=== PATIENT | female | born 1955 | race Two or more races ===

== ENCOUNTER 2024-08-28 09:11 | Outpatient (REF) | payer MEDICARE, MEDICAID, SELFPAY | END 2024-08-28 09:12 | disposition home or self-care (01) | LOC: HO.HOSX 09:11 | PROVIDERS: Visit Provider Physician Assistant | DX: M25.552 Pain in left hip (principal); M70.62 Trochanteric bursitis, left hip | CPT/HCPCS: 20610; 73502; 99202; J1010; J2003 ==

== ENCOUNTER 2024-08-28 09:11 | Outpatient (AMB) | payer MEDICARE, MEDICAID, SELFPAY ==
--- NOTE | 2024-08-28 09:18 | A.OFFVIS_ITS ---
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 Patient reports her pain has been present for years and fluctuates in intensity. She has a burning sensation that is located at the lateral aspect of hip and travels down her leg to her foot. Occasional numbness and tingling. No other tx. Denies injury. Finds no relief with Tylenol. 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 She denies any hip injury in the past. She states she has burning sensation and pain at the lateral aspect of her that fluctuates in intensity and radiates down to her leg and foot. She also experiences occasional numbness and tingling in her hip. She denies any groin pain. She has not had any treatment in the past. She finds no relief with Tylenol. She has a history of prediabetes. [facility] Social History (Updated 08/28/24 @ 09:30 by Emily Lind Franki) Patient Tobacco Use Status: Never used Tobacco Current occupational status: unemployed Review of Systems Const All systems reviewed & are unremarkable except as noted in HPI and below Physical Exam Vital Signs: BMI result Body Mass Index 36.6 Const General: cooperative, healthy appearing, comfortable, no acute distress, well developed and alert Orientation/consciousness: patient oriented x3 HEENT Head: Yes normal to inspection, Yes normocephalic and Yes atraumatic Eyes General: appearance normal, both eyes and all related structures Resp Effort & Inspection: normal respiratory effort and able to speak in complete sentences Cardio Rate: regular rate Peripheral pulses: Peripheral pulses 2+ throughout GI Palpation (GI): Soft to palpation Skin Lesions: no lesions Rashes: no rashes Neuro General: patient oriented x3 Extrem Other: Left hip: Normal to inspection. No pain with ROM of the hip. Pain along the greater trochanter. No pain with hip flexion or abduction. Positive tenderness along the SI joint, Positive SLR. NVI. Office Procedures AMB Joint Injection/Aspiration Joint Injection/Aspiration Primary Site: right knee Prep: site was prepped using aseptic technique, ethochloride spray was applied and injection warnings given Injected: 80 mg of, DepoMedrol, with 8 mL of, 1% plain lidocaine and in the joint Approach Used: anterolateral Procedure: The patient tolerated the procedure well and there was some relief with the local anesthesia Coding 29160 - Glenohumeral/Tronchanteric Bursa/Intraarticular Procedure code (CPT) selection complete Assessment & Plan Assessment & Plan (1) Trochanteric bursitis, left hip: Code(s): M70.62 - Trochanteric bursitis, left hip Category: Medical Plan We discussed options today, which include steroid injection. The patient did consent to move forward with the left hip injection, which was tolerated well. I recommended rest, ice, and elevation and OTC anti-inflammatories as needed for discomfort. She was also referred to a course of physical therapy in the office today. If symptoms persist or worsens over the next 6-8 weeks, patient will contact the office to discuss referral for si joint infection at pain mgmnt , otherwise follow-up as needed. Orders: Orders XR hip LT min 2V Today M25.552 - Pain in left hip PT Evaluation and Treatment Today M70.62 - Trochanteric bursitis, left hip Patient Instructions: Scribed for Monique Ballard PA-C, by Sae Quiñones medical lab technologist, on 08/28/2024 at 8:45 AM EST.? I, Monique Ballard PA-C, have personally reviewed and agree with the information entered by the scribe. Coding Level of Care Code New Pt Level 3 (62980) Complex EM visit Add On G2211 Diagnoses Trochanteric bursitis, left hip M70.62 CPT Codes Coding - Joint 7: 72115 - Glenohumeral/Tronchanteric Bursa/Intraarticular ([id number])
[2024-08-28 09:34] VITALS: BMI 36.6
== END 2024-08-28 10:09 | disposition home or self-care (01) ==
PROVIDERS: PCP Nurse Practitioner; Visit Provider Physician Assistant
DX: M70.62 Trochanteric bursitis, left hip (principal)
CPT/HCPCS: 20610; 99203

== ENCOUNTER 2024-11-19 08:40 | Outpatient (REF) | payer MEDICARE, MEDICAID, SELFPAY ==
--- NOTE | ~2024-11-19 | XR_ITS ---
EXAMINATION: XR HAND 3 OR MORE VIEWS RIGHT HISTORY: M79.641 - Pain in right hand COMPARISON: There are no prior studies available for comparison. FINDINGS: Three views of the right hand are submitted. Osseous mineralization is normal. There is an osseous density within the soft tissues of the dorsal aspect of the DIP joint of the middle finger which may represent an old fracture fragment. There is no dislocation. There is degenerative change of the interphalangeal joint of the thumb and the DIP joints. The soft tissues are unremarkable. XR/XR hand RT min 3V IMPRESSION: Probable old fracture fragment adjacent to the DIP joint of the little finger. Clinical correlation is recommended. Degenerative changes of the interphalangeal joint of the thumb and the DIP joints. Electronically signed by: Hayden Jeronimo MD 11/19/2024 03:13 PM NAYELY HARPER
== END 2024-11-19 08:41 | disposition home or self-care (01) ==
LOC: HO.HOSX 08:40
DX: M79.641 Pain in right hand (principal); M25.642 Stiffness of left hand, not elsewhere classified; R20.0 Anesthesia of skin; R20.2 Paresthesia of skin
CPT/HCPCS: 73130; 99212

== ENCOUNTER 2024-11-19 09:01 | Outpatient (AMB) | payer MEDICARE, MEDICAID, SELFPAY ==
--- NOTE | 2024-11-19 09:05 | A.OFFVIS_ITS ---
Vital Signs 11/19/24 09:06 Height 5 ft 2 in Weight 200 lb BMI 36.6 Intake Visit Reasons: New Prob - Right Hand Pain Intake Note: Chantal is a 69 year old right hand dominant female who presents today for a new problem visit with complaints of right hand pain. Patients daughter is present with her today and wishes to interpret for her mother, they have declined crane hoist or lift operator services. Patient reports that she has had right hand pain for about a year now. She explains that she is having cramping and pain in the hand with numbness and tingling in the thumb, 1st and 2nd digits. She has had no previous treatment for her symptoms. She does not take anything for her pain currently. Piece Jobber Required: Yes Piece Jobber Services: Piece Jobber Offered & Declined (Daughter to interpret) Allergies aspirin Adverse Reaction (Verified 11/19/24 09:16) upset stomach HPI HPI New Prob - Right Hand Pain: Details: Chantal is a 69 year old right hand dominant female who presents today for a new problem visit with complaints of right hand pain. Patients daughter is present with her today and wishes to interpret for her mother, they have declined crane hoist or lift operator services. Patient reports that she has had right hand pain for about a year now. She explains that she is having cramping and pain in the hand with numbness and tingling in the thumb, 1st and 2nd digits. She has had no previous treatment for her symptoms. She does not take anything for her pain currently. [facility] Surgical History (Updated 11/19/24 @ 09:18 by Sejal Rosenberg CMA) H/O lumbosacral spine surgery Social History (Updated 08/28/24 @ 09:30 by Emily Lind [facility]) Patient Tobacco Use Status: Never used Tobacco Current occupational status: unemployed Review of Systems Const All systems reviewed & are unremarkable except as noted in HPI and below Physical Exam Vital Signs: BMI result Body Mass Index 36.6 Extrem Other: Patient is alert, oriented, and in no acute distress. Neuro: Diminished sensation of the tip of the index finger of the left hand in the office today Normal sensation of the tips of all other digits of the left hand in the office today Vascular: Cap refill brisk Pain: Pain with range of motion of the left hand No tenderness to palpation about the left hand or wrist ROM: With encouragement, patient was able to get close to making a closed fist with the left hand Patient can extend all digits of the left hand fully and without difficulty Skin: No lacerations or abrasions. General: No ecchymosis, erythema, or evidence of infection. Psych: Appears grossly normal Affect normal Attitude cooperative Assessment & Plan Assessment & Plan (1) Stiffness of left hand joint: Code(s): M25.642 - Stiffness of left hand, not elsewhere classified Category: Medical (2) Numbness and tingling in left hand: Code(s): R20.0 - Anesthesia of skin; R20.2 - Paresthesia of skin Category: Medical Plan 1. Numbness and tingling of left hand Intermittent, daily, worse at night At this time, patient was referred for EMG and nerve conduction study to assess the health of the nerves of the left upper extremity Patient will follow-up after EMG and nerve conduction study for results review and discussion of further treatment options if indicated Patient was amenable to this plan 2. Stiffness of left hand Patient was referred to occupational therapy for range of motion and strengthening of the left hand in the setting of stiffness Patient was amenable to this plan Orders: Orders XR hand RT min 3V Today M79.641 - Pain in right hand OT Evaluation and Treatment Today M25.642 - Stiffness of left hand, not elsewhere classified, R20.0 - Anesthesia of skin, R20.2 - Paresthesia of skin NE electromyogram (EMG) Today R20.0 - Anesthesia of skin, R20.2 - Paresthesia of skin NE nerve conduction velocity Today R20.0 - Anesthesia of skin, R20.2 - Paresthesia of skin Coding Level of Care Code New Pt Level 3 (38641) Diagnoses Stiffness of left hand joint M25.642 Numbness and tingling in left hand R20.0; R20.2
[2024-11-19 09:06] VITALS: BMI 36.6
--- OUTSIDE RECORDS SUMMARY | 2024-11-19 09:47 | XMS_ITS | Clinical Summary ---
Author Organization [facility] Address [address] [place] [address] Care Team Providers Care Package Handler Name Role Phone Elena Wilkinson NP Primary Care Provider + [phone] Source Comments PLEASE NOTE, if this patient is a minor, it may be UNLAWFUL to discuss sensitive information that is contained in these records (such as FAMILY PLANNING, MENTAL HEALTH or SUBSTANCE ABUSE) with the minor patient's parent or other person without the patient's specific authorization.[facility] Allergies Active Allergy Reactions Criticality Noted Date Comments Aspirin 04/19/2024 Gastric disease , abd pain with use of ASA Medications MISCELLANEOUS MEDICAL SUPPLY MISCIndications:Ac yuhaaviatam pain of right knee,Right hand pain by miscellaneous route once daily Cane please 1 Each 04/16/20 24 Active lisinopriL 10 mg tabletIndications: Hypertension, unspecified type TAKE 1 TABLET BY MOUTH DAILY 90 Tablet 05/29/20 24 Active metFORMIN (GLUCOPHAGE) 850 mg tabletIndications: Prediabetes TAKE 1 TABLET BY MOUTH ONCE A DAY FOR 1 MONTH THEN INCREASE TO TWICE DAILY 180 Tablet 1 06/04/20 24 Active amoxicillin-pot clavulanate (AUGMENTIN) 875-125 mg per tabletIndications: Ear infection Take 1 Tablet by mouth 2 (two) times daily 10 Tablet 07/15/20 24 Active atorvastatin (LIPITOR) 10 mg tabletIndications: Other hyperlipidemia TAKE 1 TABLET BY MOUTH EVERY NIGHT AT BEDTIME 90 Tablet 1 09/23/20 24 Active Active Problems Problem Noted Date Diagnosed Date Obesity (BMI 30-39.9) 04/16/2024 Hypertension 04/16/2024 Overview (04/19/2024): Unable to take aspirin Other hyperlipidemia 03/21/2024 Prediabetes 03/06/2024 Subclinical hypothyroidism 12/29/2023 Immunizations Name Administration Dates Next Due Influenza (FLUZONE), high-dose, trivalent, PF PFIZER COVID VACCINE, PURPLE CAP, 12+ 03/03/2021 ,02/10/2021 PNEUMOCOCCAL CONJUGATE PCV 20 (Prevnar) 04/16/20 24 PNEUMOCOCCAL POLYSACCHARIDE PPV23 03/03/2023 Social History Tobacco Use Types Packs/Day Years Used Date Smoking Tobacco: Never Smokeless Tobacco: Never Tobacco Cessation:Counseling Given: Yes Alcohol Use Standard Drinks/Week Comments Never 0 (1 standard drink = 0.6 oz pur e alcohol) Social Connections Answer Date Recorded Connectedness 1 07/15/2024 Financial Resource Strain Answer Date R ecorded Financial Resource Strain 1 2023 Stress Answer Date Recorded Stress 1 07/15/2024 Physical Activity Answer Date Recorded Physical Activity 0 06/24/2022 Food Insecurity Answer Date Recorded Food 1 07/15/2024 Transportation Needs Answer Date Record ed Transportation 1 07/15/2024 Housing Stability Answer Date Recorded Housing 1 07/15/2024 Safety and Environment Answer Date Lior rded Safety 1 03/06/2024 Utilities Answer Date Recorded Utilities 1 07/15/2024 Employment Answer Date Recorded Stress 0 08/29/2022 Comments No Sex and Gender Information Value Date Recorded Sex Assigned at Female 08/29/2022 7:49 AM PST Legal Sex Female 1:00 PM PDT Gender Identity Female 08/29/2022 7:49 AM PST Sexual Orientation Straight 08/29/2022 7: 49 AM PST 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 Start 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 Job 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 ss Not on file Not on file Not on file Last Filed Vital Signs Vital Sign Reading Time Taken Comments Blood Pressure 122/70 07/15/2024 8:53 AM EDT Pulse 59 07/15/2024 8:53 AM EDT Temperature 36.6 ??C (97.9 ??F) 07/15/2024 8:53 AM ED T Respiratory Rate 20 07/15/2024 8:53 AM EDT Oxygen Saturation 98% 07/15/2024 8:53 AM EDT Inhaled Oxygen Concentration - - Weight 98.4 kg (217 lb) 07/15/2024 8:53 AM EDT Height 157.5 cm (5' 2 ) 04/16/2024 11:11 AM EDT Body Mass Index 39.69 04/16/2024 11:11 AM EDT Plan of Treatment Health Maintenance Due Date Last Done Comments Imm-DTaP/Tdap/Td (1 - Tdap) 1976 Breast Cancer Screening (Mammogram) 1997 CT Colonography 2002 Colonoscopy 2002 FIT/gFOBT 2002 Fecal DNA 2002 Flexible Sigmoidoscopy 2002 Imm-Zoster, Recombinant (1 of 2) 2007 Bone Density Screening 2022 [id number]-80 ( season) 2024 03/03/2021, 02/10/2021 Alcohol and Drug Screen 09/25/2024 07/15/20 24, 04/16/2024, 03/03/2023 Depression Annual Screen 09/25/2024 07/15/2024 Diabetes Screening 10/17/2024 04/16/2024, 0 04/16/2024, 12/29/2023, Additional history exists Colorectal Cancer Screening 03/11/2025 Postponed from 2002 (Follow up visit) Falls Prevention 04/16/2025 04/16/2024 Lipid Screening 04/16/2025 04/16/2024, 03/20/2024 TSH Monitoring 04/16/2025 04/16/2024, 02/24, 12/27/2023 Medicare Annual Wellness Visit 07/15/2025 07/15/2024, 03/03/2023 Tobacco Screening 07/15/2025 07/15/2024 Hepatitis C Screening Completed 04/16/2024 Imm-Pneumococcal 65+ Completed 04/16/2024, 03/03/20 Imm-Influenza Completed 07/15/2024 Procedures Procedure Name Priority Date/Time Associated Diagnosis Comments REFERRAL TO ORTHOPEDICS Routine 08/28/2024 3:00 AM EST Chronic pain of both knees Right hand pain Chronic left hip pain THYROID CASCADING REFLEX PANEL Routine 04/16/2024 11:57 AM EDT Subclinical hypothyroidism Other hyperlipidemia Prediabetes HEPATITIS C AB W/RFLX HCV RNA, QT, RT PCR Routine 04/16/2024 11:57 AM EDT Need for hepatitis C screening test HEMOGLOBIN GLYCOSYLATED A1C Routine 04/16/2024 11:57 AM EDT Subclinical hypothyroidism Other hyperlipidemia Prediabetes LIPID PANEL Routine 04/16/2024 11:57 AM EDT Subclinical hypothyroidism Other hyperlipidemia Prediabetes from Last 3 Months or Most Recently Relevant to Health Maintenance Results * REFERRAL TO ORTHOPEDICS (08/28/2024 3:00 AM EST) 08/28/2024 3:00 AM EST us Elena Wilkinson NP REFERRAL Edited Resul t - Final * HEPATITIS C AB W/RFLX HCV RNA, QT, RT PCR (04/16/2024 11:57 AM EDT) HEPATITIS C ANTIBODY NON-REACT LISANDRO NON-REACT LISANDRO [facility] Comment: HCV antibody was non-reactive. There is no laboratory evidence of HCV infection. In most cases, no further action is required. However, if recent HCV exposure is suspected, a test for HCV RNA (test code 14048) is suggested. For additional information please refer to http://education.[employer].L[employer]MeYourLiteracy/faq/VKT43s4 (This link is being provided for informational/ educational purposes only.) Blood Blood / Unknown 04/16/2024 1 1:57 AM EDT 04/16/2024 11:57 AM EDT us Elena Wilkinson NP LAB - BLOOD DRAW Edited Resu lt - Final [facility] [address] [address], [facility] [address] [phone] * THYROID CASCADING REFLEX PANEL (04/16/2024 11:57 AM EDT) TSH 2.50 0.40 - 4.50 mIU/L [facility] Blood Blood / Unknown 04/16/2024 1 1:57 AM EDT 04/16/2024 11:57 AM EDT Elena Wilkinson CHANNEL PROGRAM MANAGER LAB - BLOOD DRAW Edited Resu lt - Final Performing Organization Address City/[facility]/ZIP Co de Phone Number [facility] [address] [address], [facility] [address] [phone] * (ABNORMAL) HEMOGLOBIN GLYCOSYLATED A1C (04/16/2024 11:57 AM EDT) Pathologist [facility] HEMOGLOBIN A1C 6.3(H) <5.7 % of total Hgb [facility] Comment: For someone without known diabetes, a hemoglobin A1c value between 5.7% and 6.4% is consistent with prediabetes and should be confirmed with a follow-up test. For someone with known diabetes, a value <7% indicates that their diabetes is well controlled. A1c targets should be individualized based on duration of diabetes, age, comorbid conditions, and other considerations. This assay result is consistent with an increased risk of diabetes. Currently, no consensus exists regarding use of hemoglobin A1c for diagnosis of diabetes for children. Blood Blood / Unknown 04/16/2024 1 1:57 AM EDT 04/16/2024 11:57 AM EDT us Elena Wilkinson NP LAB - BLOOD DRAW Edited Resu lt - Final Performing Organization Address City/[facility]/ZIP Co de Phone Number [facility] [address] [address], [employer] [address] [phone] * (ABNORMAL) LIPID PANEL (04/16/2024 11:57 AM EDT) Pathologist [facility] CHOLESTEROL, TOTAL 245(H) <200 mg/dL [facility] HDL CHOLESTEROL 49(L) > OR = 50 mg/dL [facility] TRIGLYCERIDES 300(H) <150 mg/dL [facility] Comment: If a non-fasting specimen was collected, consider repeat triglyceride testing on a fasting specimen if clinically indicated. Ron et al. J. of Clin. Lipidol. 2015;9:129-169. LDL-CHOLESTEROL 150(H) 99 mg/dL (calc) [facility] Comment: Reference range: <100 Desirable range <100 mg/dL for primary prevention; ?? <70 mg/dL for patients with CHD or diabetic patients with > or = 2 CHD risk factors. LDL-C is now calculated using the Yeni calculation, which is a validated novel method providing better accuracy than the Friedewald equation in the estimation of LDL-C. Burak SS et al. INGRID. 2013;310(19): 1840-6224 (http://education.[employer] [facility] [employer]/faq/KNX982) CHOL/HDLC RATIO 5.0(H) <5.0 (calc) [facility] NON-HDL CHOLESTEROL 196(H) <130 mg/dL (calc) [facility] Comment: For patients with diabetes plus 1 major ASCVD risk factor, treating to a non-HDL-C goal of <100 mg/dL (LDL-C of <70 mg/dL) is considered a therapeutic option. Blood Blood / Unknown 04/16/2024 1 1:57 AM EDT 04/16/2024 11:57 AM EDT us Elena Wilkinson NP LAB - BLOOD DRAW Final Resul t [facility] [address] [place] [phone], [facility] [place] [facility] [address] [place] [phone] from Last 3 Months or Most Recently Relevant to Health Maintenance Insurance [place] Care Teams Package Handler Relationship Specialty Start Date End Date Elena Wilkinson NP [address] [place] [address] PCP - General Internal Medicine 06/24/22
== END 2024-11-19 09:37 | disposition home or self-care (01) ==
PROVIDERS: PCP Nurse Practitioner
DX: M25.642 Stiffness of left hand, not elsewhere classified (principal); R20.0 Anesthesia of skin; R20.2 Paresthesia of skin
CPT/HCPCS: 99213

== ENCOUNTER → 2024-11-19 09:05 | Outpatient (BNV) | payer MEDICARE, MEDICAID, SELFPAY | PROVIDERS: Visit Provider Radiology Diagnostic Radiology | DX: M19.041 Primary osteoarthritis, right hand (principal) | CPT/HCPCS: 73130 ==

== ENCOUNTER 2025-01-22 10:03 | Outpatient (REF) | payer MEDICARE, MEDICAID, SELFPAY ==
--- NOTE | 2025-01-22 10:08 | EMG_ITS ---
Chief complaint: At least 1 year, worsening/progressing, right shoulder/arm pain with weakness, inability to flex and abduct right shoulder/upper arm, with tingling specifically on digits 2 and 3. On exam, noted lateral scapular winging on the right side. No atrophy. No hyperreflexia. Reason for referral: Evaluate for radiculopathy Referred by: Urbano PRINCE Procedure done: Patient clarified that all symptoms are on the right side, although order was placed for left side. Ortho notes reviewed. Right upper extremity NCS/EMG performed. Precautions and/or limitations: None Upper Sorbian speaking, seen with clinical product manager. The limb temperature was monitored continuously and remained between 32-36 degrees C during the performance of the NCS. Nerve Conduction Studies Anti Sensory Summary Table ?Stim Site NR Onset (ms) Norm Onset (ms) Peak (ms) Norm Peak (ms) O-P Amp (?V) Norm O-P Amp Site1 Site2 Delta-0 (ms) Dist (cm) Tho (m/s) Norm Tho (m/s) Right Median Anti Sensory (2nd Digit) Wrist ? 2.5 3.3 <3.6 37.5 >10 Wrist 2nd Digit 2.5 14.0 56 Right Ulnar Anti Sensory (5th Digit) Wrist ? 2.6 3.3 <3.7 18.5 >15.0 Wrist 5th Digit 2.6 14.0 54 Motor Summary Table ?Stim Site NR Onset (ms) Norm Onset (ms) O-P Amp (mV) Norm O-P Amp iAmp (mV) Amp (1st) (%) Site1 Site2 Delta-0 (ms) Dist (cm) Tho (m/s) Norm Tho (m/s) Right Median Motor (Abd Poll Brev) Wrist ? 3.8 <3.9 10.0 >4.5 11.1 100.0 Elbow Wrist 3.7 19.5 53 >45 Elbow ? 7.5 10.0 11.3 100.0 Right Ulnar Motor (Abd Dig Minimi) Wrist ? 3.0 <3.0 7.1 >5 9.2 100.0 B Elbow Wrist 2.9 16.5 57 >45 B Elbow ? 5.9 6.7 8.8 94.4 A Elbow B Elbow 1.5 10.0 67 >45 A Elbow ? 7.4 7.2 9.4 101.4 Comparison Summary Table ?Stim Site NR Peak (ms) Norm Peak (ms) P-T Amp (?V) Site1 Site2 Delta-P (ms) Norm Delta (ms) Right Median/Radial Dig I Comparison (Digit 1 - 10cm) Median ? 3.2 <2.9 44.4 Median Radial 0.6 Radial ? 2.6 <2.8 27.3 EMG ?Side Muscle Nerve Root Ins Act Fibs Psw Amp Dur Poly Recrt Int Pat Comment Right 1stDorInt Ulnar C8-T1 Nml Nml Nml Nml Nml 0 Nml Complete Right FlexCarRad Median C6-7 Nml Nml Nml Nml Nml 0 Reduced Complete Right Biceps Musculocut C5-6 Incr 1+ 1+ Nml Nml 0 Nml Complete Right Triceps Radial C6-7-8 Nml Nml Nml Nml Nml 0 Nml Complete Right Deltoid Axillary C5-6 Nml Nml Nml Nml Nml 0 Nml Complete Right Supraspinatus SupraScap C5-6 Incr 1+ 1+ Nml Nml 0 Reduced Complete Paraspinal EMG ?Side Muscle Nerve Root Ins Act Fibs Psw Comment Right Cervical Upper Rami Nml Nml Nml Right Cervical Mid Rami Nml Nml Nml Right Cervical Lower Rami Nml Nml Nml FINDINGS: Interlatency difference between right median and sensory nerves was 0.6. Otherwise, all motor and sensory nerves tested showed normal latencies, amplitudes and conduction velocities. Concentric needle EMG was performed in selected muscles of the right upper extremity and cervical paraspinals. Study revealed signs of electric abnormalities as shown in the table above. Right biceps showed increased insertional activity, PSWs and fibrillations. Right FCR showed reduced recruitment. Right supraspinatus showed increased insertional activity, PSWs and fibrillations, with reduced recruitment. No denervation seen on paraspinals. IMPRESSION: 1. This is an abnormal study. 2. There are electrodiagnostic findings suggestive of right-sided acute C5-6 radiculopathy. 3. There is electrodiagnostic evidence for very mild/borderline median neuropathy at the wrist, that could be consistent with Carpal Tunnel Syndrome. 4. There is no electrodiagnostic evidence for ulnar neuropathy, or brachial plexopathy. CLINICAL COMMENT: Mild Carpal Tunnel Syndrome would not explain weakness on right upper extremity/shoulder. Recommend further cervical spine imaging. Thank you for your kind referral. Kirstin Holman MD, SILVIA Board Certified, [place] Board of [employer] Medicine and Rehabilitation (ABPMR) Board Certified, [place] Board of Electrodiagnostic Medicine (ABEM) [place]OD[place] [address] [facility]
--- OUTSIDE RECORDS SUMMARY | 2025-01-22 11:03 | XMS_ITS | Clinical Summary ---
Author Organization [facility] Address [address] [place] [address] Care Team Providers Care Adult Family Home Program Manager Name Role Phone Elena Wilkinson NP Primary Care Provider + [phone] Source Comments PLEASE NOTE, if this patient [...] of ASA Medications MISCELLANEOUS MEDICAL SUPPLY MISCIndications:Ac yung pain of right knee,Right hand pain by miscellaneous route once daily Cane please 1 Each 04/16/20 24 Active amoxicillin-pot clavulanate (AUGMENTIN) 875-125 mg per tabletIndications: Ear infection Take 1 Tablet by mouth 2 (two) times daily 10 Tablet 07/15/20 24 Active metFORMIN (GLUCOPHAGE) 850 mg tabletIndications: Prediabetes Take 1 Tablet by mouth 2 (two) times daily with a meal 180 Tablet 3 11/19/19 25 Active lisinopriL 10 mg tabletIndications: Hypertension, unspecified type Take 1 Tablet by mouth once daily 90 Tablet 3 11/19/19 25 Active atorvastatin (LIPITOR) 10 mg tabletIndications: Other hyperlipidemia Take 1 Tablet by mouth nightly at bedtime 90 Tablet 3 11/19/19 25 Active Active Problems Problem Noted Date Diagnosed Date Obesity (BMI 30-39.9) 04/16/2024 Hypertension 04/16/2024 Overview (04/19/2024): Unable to take aspirin Other hyperlipidemia 03/21/2024 Prediabetes 03/06/2024 Subclinical hypothyroidism 12/29/2023 Immunizations Immunization Administration Dates Next Due Influenza (FLUZONE), high-dose, [...] 04/16/2024 11:11 AM EDT Plan of Treatment Upcoming Encounters Date Type Department Care Team (Late st Contact Info) Description 02/18/2025 9:00 AM EDT Office Visit [facility] [address] [place] [address] Elena Wilkinson, ANN [address] [place] [address] Health Maintenance Due Date Last Done Comments Imm-DTaP/Tdap/Td (1 - Tdap) 1976 Breast Cancer Screening (Mammogram) 1997 CT Colonography 2002 Colonoscopy 2002 FIT/gFOBT 2002 Fecal DNA 2002 Flexible Sigmoidoscopy 2002 Imm-Zoster, Recombinant (1 of 2) 2007 Bone Density Screening 2022 [id number] ( season) 2024 03/03/2021, 02/10/2021 Alcohol and [...] Associated Diagnosis Comments REFERRAL TO ORTHOPEDICS Routine 11/19/2024 3:00 AM EST Acute pain of right knee Right hand pain THYROID CASCADING REFLEX PANEL Routine 04/16/2024 [...] Health Maintenance Results * REFERRAL TO ORTHOPEDICS (11/19/2024 3:00 AM EST) 11/19/2024 3:00 AM EST Elena Wilkinson NP REFERRAL Final Result * HEPATITIS C AB W/RFLX HCV RNA, QT, RT PCR (04/16/2024 11:57 AM EDT) HEPATITIS C ANTIBODY NON-REACT LISANDRO NON-REACT LISANDRO [facility] Comment: HCV antibody was non-reactive. There is no laboratory evidence of HCV infection. In most cases, no further action is required. However, if recent HCV exposure is suspected, a test for HCV RNA (test code 71723) is suggested. For additional information please refer to http://education.Inhabi/faq/SNI37j0 (This link is being provided for informational/ educational purposes only.) Blood Blood / Unknown 04/16/2024 1 1:57 AM EDT 04/16/2024 11:57 AM EDT Elena Reddy Valchristi [facility] LAB - BLOOD DRAW Edited Resu lt - Final Performing Organization Address [facility] [address] [facility] Co de Phone Number [facility] [address] [address], [employer] [address] [address] * THYROID CASCADING REFLEX PANEL (04/16/2024 11:57 AM EDT) TSH 2.50 0.40 - 4.50 mIU/L [facility] Blood Blood / Unknown 04/16/2024 1 1:57 AM EDT 04/16/2024 11:57 AM EDT us Elena Wilkinson NP LAB - BLOOD DRAW Edited Resu lt - Final Performing Organization Address [facility] de Phone Number [facility] [address] [address], [employer] [address] [address] * (ABNORMAL) HEMOGLOBIN GLYCOSYLATED A1C (04/16/2024 11:57 AM EDT) HEMOGLOBIN A1C 6.3(H) <5.7 % of total Hgb [facility] Comment: For someone without known diabetes, a [...] AM EDT 04/16/2024 11:57 AM EDT Elena Reddy Valle STORE LOSS PREVENTION MANAGER LAB - BLOOD DRAW Edited Resu lt - Final Performing Organization Address [facility] [address]/ZIP Co de Phone Number [facility] [address] [address], [facility] [address] [address] * (ABNORMAL) LIPID PANEL (04/16/2024 11:57 AM EDT) CHOLESTEROL, TOTAL 245(H) <200 mg/dL [facility] HDL CHOLESTEROL 49(L) > OR = 50 mg/dL [facility] TRIGLYCERIDES 300(H) <150 mg/dL [facility] Comment: If a non-fasting specimen was collected, consider repeat triglyceride testing on a fasting specimen if clinically indicated. Ron et al. J. of Clin. Lipidol. 2015;9:129-169. LDL-CHOLESTEROL 150(H) 99 mg/dL (calc) [facility] Comment: Reference range: <100 Desirable range <100 mg/dL for primary prevention; ?? <70 mg/dL for patients with CHD or diabetic patients with > or = 2 CHD risk factors. LDL-C is now calculated using the Burak-Carin calculation, which is a validated novel method providing better accuracy than the Friedewald equation in the estimation of LDL-C. Burak SS et al. INGRID. 2013;310(19): 4515-3596 (http://education.How do you roll?/faq/JPG646) CHOL/HDLC RATIO 5.0(H) <5.0 (calc) [facility] NON-HDL CHOLESTEROL 196(H) <130 mg/dL (calc) [facility] Comment: For patients with diabetes plus 1 major ASCVD risk factor, treating to a non-HDL-C goal of <100 mg/dL (LDL-C of <70 mg/dL) is considered a therapeutic option. Blood Blood / Unknown 04/16/2024 1 1:57 AM EDT 04/16/2024 11:57 AM EDT us Elena Wilkinson NP LAB - BLOOD DRAW Final Resul t Performing Organization Address [facility] [address]/ZIP Co de Phone Number [facility] [address] [address], [facility] [address] [address] from Last 3 Months or Most Recently Relevant to Health Maintenance [place] Care Teams Adult Family Home Program Manager Relationship Specialty Start Date End Date Elena Wilkinson NP [facility] [place] [address] PCP - General Internal Medicine 06/24/22
== END 2025-01-22 10:04 | disposition home or self-care (01) ==
LOC: HO.NEURO 10:03
PROVIDERS: PCP Nurse Practitioner
DX: R20.2 Paresthesia of skin (principal); R20.0 Anesthesia of skin; R94.131 Abnormal electromyogram [EMG]
CPT/HCPCS: 95886; 95909

== ENCOUNTER → 2025-01-22 10:08 | Outpatient (BNV) | payer MEDICARE, MEDICAID, SELFPAY | PROVIDERS: PCP Nurse Practitioner; Visit Provider Physical Medicine & Rehabilitation | DX: M54.12 Radiculopathy, cervical region (principal); G56.01 Carpal tunnel syndrome, right upper limb | CPT/HCPCS: 95886; 95909 ==

== ENCOUNTER 2025-03-05 09:24 | Outpatient (AMB) | payer MEDICARE, MEDICAID, SELFPAY ==
--- NOTE | 2025-03-05 09:26 | MHC.OFFVIS ---
Vital Signs 03/05/25 09:27 Height 5 ft 2 in Weight 200 lb BMI 36.6 Intake Visit Reasons: OV-Right UE EMG review Intake Note: Chantal is a 69 year old right hand dominant female who presents today for an EMG review of her right upper extremity. EMG/NCS done on 01/22/25 IMPRESSION: 1. This is an abnormal study. 2. There are electrodiagnostic findings suggestive of right-sided acute C5-6 radiculopathy. 3. There is electrodiagnostic evidence for very mild/borderline median neuropathy at the wrist, that could be consistent with Carpal Tunnel Syndrome. 4. There is no electrodiagnostic evidence for ulnar neuropathy, or brachial plexopathy. Adult Probation Officer Name: [id number] Migue Allergies aspirin Adverse Reaction (Verified 03/05/25 09:48) upset stomach HPI HPI OV-Right UE EMG review: Details: Chantal is a 69 year old right hand dominant female who presents today for an EMG review of her right upper extremity. Patient states that her primary complaint is b/l UE weakness extending from the shoulders to b/l hands. Reports fewer complaints in her hands. Patient has an appointment scheduled with Dr. Velarde for cervical radiculopathy. No other acute complaints or concerns at this time. EMG/NCS done on 01/22/25 IMPRESSION: 1. This is an abnormal study. 2. There are electrodiagnostic findings suggestive of right-sided acute C5-6 radiculopathy. 3. There is electrodiagnostic evidence for very mild/borderline median neuropathy at the wrist, that could be consistent with Carpal Tunnel Syndrome. 4. There is no electrodiagnostic evidence for ulnar neuropathy, or brachial plexopathy. [facility] Surgical History (Updated 11/19/24 @ 09:18 by Sejal Rosenberg CMA) H/O lumbosacral spine surgery Social History (Updated 08/28/24 @ 09:30 by SHAQUILLE Shaw) Patient Tobacco Use Status: Never used Tobacco Current occupational status: unemployed Review of Systems Const All systems reviewed & are unremarkable except as noted in HPI and below Physical Exam Vital Signs: BMI result Body Mass Index 36.6 Extrem Other: Patient is alert, oriented, and in no acute distress. Neuro: Diminished sensation of the tip of the index finger of the left hand in the office today Normal sensation of the tips of all other digits of the left hand in the office today Vascular: Cap refill brisk Pain: Pain with range of motion of the left hand No tenderness to palpation about the left hand or wrist ROM: With encouragement, patient was able to get close to making a closed fist with the left hand Patient can extend all digits of the left hand fully and without difficulty Skin: No lacerations or abrasions. General: No ecchymosis, erythema, or evidence of infection. Psych: Appears grossly normal Affect normal Attitude cooperative Assessment & Plan Assessment & Plan (1) Cervical radiculopathy at C5: Code(s): M54.12 - Radiculopathy, cervical region Category: Medical (2) Cervical radiculopathy at C6: Code(s): M54.12 - Radiculopathy, cervical region Category: Medical (3) Stiffness of left hand joint: Code(s): M25.642 - Stiffness of left hand, not elsewhere classified Category: Medical (4) Numbness and tingling in left hand: Code(s): R20.0 - Anesthesia of skin; R20.2 - Paresthesia of skin Category: Medical Plan 1. Numbness and tingling of left hand 2. Cervical radiculopathy Due to patient's symptoms being more consistent with cervical radiculopathy and EMG findings, recommend follow up with Dr. Velarde and discussion of treatment options for this prior to intervention for potential CTS If patient continues to experience symptoms after treatment for this, can f/u for discussion of surgical intervention Patient is amenable to this plan Coding Level of Care Code Est Pt Level 3 (83009) Diagnoses Cervical radiculopathy at C5 M54.12 Cervical radiculopathy at C6 M54.12 Stiffness of left hand joint M25.642 Numbness and tingling in left hand R20.0; R20.2
[2025-03-05 09:27] VITALS: BMI 36.6
--- OUTSIDE RECORDS SUMMARY | 2025-03-05 10:12 | XMS_ITS | Clinical Summary ---
Author Organization [facility] Address [address] [place] [address] Care Team Providers Care Certified Registered Dental Assistant Name Role Phone Elena Wilkinson NP Primary Care Provider + [phone] Source Comments PLEASE NOTE, if this patient [...] 20 (Prevnar) 04/16/20 24 PNEUMOCOCCAL POLYSACCHARIDE PPV23 (Pneumovax 23) 03/03/2023 Social History Tobacco Use Types Packs/Day [...] Care Team (Late st Contact Info) Description 03/18/2025 9:40 AM EDT Office Visit [facility] [address] [place] [address] Elena Wilkinson NP [address] [place] [address] Health Maintenance Due Date Last Done Comments Medicare Annual Wellness Visit 1975 Imm-DTaP/Tdap/Td (1 - Tdap) 1976 Breast Cancer Screening (Mammogram) 1997 CT Colonography 2002 Colonoscopy 2002 FIT/gFOBT 2002 Fecal DNA 2002 Flexible Sigmoidoscopy 2002 Imm-Zoster, Recombinant (1 of 2) 2007 Bone Density Screening 2022 [id number] ( season) 2024 03/03/2021, 02/10/2021 Alcohol and Drug Screen 09/25/2024 07/15/20 24, 04/16/2024, 03/03/2023 Depression Annual Screen 09/25/2024 07/15/2024 Diabetes Screening 10/17/2024 04/16/2024, 0 04/16/2024, 12/29/2023, Additional history exists Colorectal Cancer Screening 03/11/2025 Postponed from 2002 (Follow up visit) Falls Prevention 04/16/2025 04/16/2024 Lipid Screening 04/16/2025 04/16/2024, 03/20/2024 TSH Monitoring 04/16/2025 04/16/2024, 0602/2024, 12/27/2023 Tobacco Screening 07/15/2025 07/15/2024 Hepatitis C Screening Completed 04/16/2024 Imm-Pneumococcal 65+ Completed 04/16/2024, 03/03/20 Imm-Influenza Completed 07/15/2024 Procedures Procedure Name Priority Date/Time Associated Diagnosis Comments THYROID CASCADING REFLEX PANEL Routine 04/16/2024 11:57 [...] Recently Relevant to Health Maintenance Results * HEPATITIS C AB W/RFLX HCV RNA, QT, RT PCR (04/16/2024 11:57 AM EDT) HEPATITIS C ANTIBODY NON-REACT LISANDRO NON-REACT LISANDRO [facility] Comment: HCV antibody was non-reactive. There is no laboratory evidence of HCV infection. In most cases, no further action is required. However, if recent HCV exposure is suspected, a test for HCV RNA (test code 21278) is suggested. For additional information please refer to http://education.Legions/faq/DFC75b2 (This link is being provided for informational/ educational purposes only.) Blood Blood / Unknown 04/16/2024 1 1:57 AM EDT 04/16/2024 11:57 AM EDT us Elena Wilkinson NP LAB - BLOOD DRAW Edited Resu lt - Final [facility] [address] [address], [facility] [address] [address] * THYROID CASCADING REFLEX PANEL (04/16/2024 11:57 AM EDT) TSH 2.50 0.40 - 4.50 mIU/L [facility] Blood Blood / Unknown 04/16/2024 1 1:57 AM EDT 04/16/2024 11:57 AM EDT Elena Reddy Valle COMPARATOR OPERATOR LAB - BLOOD DRAW Edited Resu lt - Final Performing Organization Address [facility] Co de Phone Number [facility] [address] [address], [facility] [address] [address] * (ABNORMAL) HEMOGLOBIN GLYCOSYLATED A1C (04/16/2024 11:57 AM EDT) HEMOGLOBIN A1C 6.3(H) <5.7 % of total Hgb [facility] Comment: For someone without known diabetes, a [...] Resu lt - Final Performing Organization Address City/[facility]/ZIP Co de Phone Number [facility] [address] [address], [employer] [address] [address] * (ABNORMAL) LIPID PANEL (04/16/2024 11:57 AM EDT) CHOLESTEROL, TOTAL 245(H) <200 mg/dL [facility] HDL CHOLESTEROL 49(L) > OR = 50 mg/dL [facility] TRIGLYCERIDES 300(H) <150 mg/dL [facility] Comment: If a non-fasting specimen was collected, consider repeat triglyceride testing on a fasting specimen if clinically indicated. Ron et al. J. of Clin. Lipidol. 2015;9:129-169. LDL-CHOLESTEROL 150(H) 99 mg/dL (calc) [facility] Comment: Reference range: <100 Desirable range <100 mg/dL for primary prevention; ?? <70 mg/dL for patients with CHD or diabetic patients with > or = 2 CHD risk factors. LDL-C is now calculated using the Burak-Carin calculation, which is a validated novel method providing better accuracy than the Friedewald equation in the estimation of LDL-C. Burak SS et al. INGRID. 2013;310(19): 6181-7120 (http://education.LimeRoad/faq/ZLT841) CHOL/HDLC RATIO 5.0(H) <5.0 (calc) [facility] NON-HDL CHOLESTEROL 196(H) <130 mg/dL (calc) [facility] Comment: For patients with diabetes plus 1 major ASCVD risk factor, treating to a non-HDL-C goal of <100 mg/dL (LDL-C of <70 mg/dL) is considered a therapeutic option. Blood Blood / Unknown 04/16/2024 1 1:57 AM EDT 04/16/2024 11:57 AM EDT us Elena Wilkinson NP LAB - BLOOD DRAW Final Resul t [facility] [address] [address], [facility] [employer] [address] [place] [phone] from Last 3 Months or Most Recently Relevant to Health Maintenance Insurance [place] - [place] Care Teams Certified Registered Dental Assistant Relationship Specialty Start Date End Date Elena Wilkinson NP [address] [place] [address] PCP - General Internal Medicine 06/24/22
== END 2025-03-05 10:11 | disposition home or self-care (01) ==
LOC: HO.HOS 09:24
PROVIDERS: PCP Nurse Practitioner
DX: M54.12 Radiculopathy, cervical region (principal); M25.642 Stiffness of left hand, not elsewhere classified; R20.0 Anesthesia of skin; R20.2 Paresthesia of skin
CPT/HCPCS: 99213

== ENCOUNTER → 2025-03-05 09:24 | Outpatient (BNVA) | payer MEDICARE, MEDICAID, SELFPAY | PROVIDERS: PCP Nurse Practitioner | DX: M54.12 Radiculopathy, cervical region (principal); M25.642 Stiffness of left hand, not elsewhere classified; R20.0 Anesthesia of skin; R20.2 Paresthesia of skin | CPT/HCPCS: 99212 ==